=== PATIENT | female | born 2000 | race Two or more races ===

== ENCOUNTER → 2025-02-17 | Outpatient (CLI) | payer BC, SELFPAY ==
--- NOTE | 2025-02-17 08:52 | XR_ITS ---
EXAMINATION: Sinus series 4 views TECHNIQUE: Bony Cruz lateral submentovertex lateral sinus series 4 views Date and time: February 17, 2025, 0912 hours INDICATIONS: Sinus pressure and pain today. FINDINGS: Mild opacity in the frontal ethmoid air cells No fluid levels No retention cyst or cortical bone destruction IMPRESSION: Mild chronic frontal ethmoid sinusitis
== END | disposition home or self-care (01) ==
LOC: CDIM 08:42
PROVIDERS: PCP Family Medicine; Referring Provider Family Medicine; Visit Provider Family Medicine
DX: J32.8 Other chronic sinusitis (principal)
CPT/HCPCS: 70220

== ENCOUNTER → 2025-03-04 | Outpatient (CLI) | payer BC, SELFPAY ==
[2025-03-08 19:48] LABS: Source STOOL
== END | disposition home or self-care (01) ==
LOC: SLDO 08:15
PROVIDERS: Referring Provider Family Medicine; Visit Provider Family Medicine
DX: B82.9 Intestinal parasitism, unspecified (principal)
CPT/HCPCS: 87177; 87209